=== PATIENT | male | born 2005 | race Hispanic/Latino ===

== ENCOUNTER 2023-06-17 15:34 | Emergency (ER) | payer OTHER, SELFPAY ==
[2023-06-17] MEDS ORDERED: Ondansetron ODT 4 MG TAB ONE (16:25)
[2023-06-17 17:07] LABS: #Eosinphils 0.1 thou/uL (0.0-0.7); #Monocytes 0.7 thou/uL (0.11-0.59); #Neutrophils 6.5 thou/uL (1.40-6.50); %Basophils 0.4 % (0.0-1.0); %Eosinophils 0.6 % (0.0-10.0); %Lymphocytes 11.9 % (28.0-48.0); %Monocytes 8.2 % (0.0-4.0); %Neutrophils 78.8 % (31.0-61.0); Hematocrit 44.6 % (42.0-52.0); Hemoglobin 15.2 g/dL (14.0-18.0); Mean Corpuscular HGB CONC 34.1 g/dL (32.0-36.0); Mean Platelet Volume 10.8 fL (7.4-10.4); Platelet Count 260 10x3/uL (130-400); RBC Distribution Width 12.8 % (11.5-14.5); Red Blood Cell (RBC) Count 5.25 mill/uL (4.00-5.20); White Blood Cell (WBC) Count 8.3 10x3/uL (4.8-10.8)
[2023-06-17 17:32] LABS: ALT (SGPT) 24 U/L (8-55); AST (SGOT) 39 U/L (10-45); Albumin 4.6 g/dL (3.5-5.0); Alkaline Phosphatase 77 U/L (50-130); Anion Gap 15 mmol/L (10-20); BUN (Urea Nitrogen) 9 mg/dL (8.4-21.0); Bilirubin, Total 0.8 mg/dL (0.2-1.2); Calc. Creatinine Clearance 0 mL/min (70-130); Calcium 9.8 mg/dL (7.8-10.44); Carbon Dioxide 26 mmol/L (22-29); Chloride 103 mmol/L (98-107); Estimated GFR 117; Globulin 3.4 g/dL (2.4-3.5); Glucose 92 mg/dL (70-105); Lipase 12 U/L (8-78); Magnesium 1.9 mg/dL (1.7-2.2); Potassium 4.4 mmol/L (3.5-5.1); Sodium 140 mmol/L (136-145)
[2023-06-17 17:34] LABS: Troponin I Less than 0.010 ng/mL (< 0.028)
== END 2023-06-17 17:38 | disposition home or self-care (01) ==
LOC: ERS 15:34
DX: R06.00 Dyspnea, unspecified (principal); F17.290 Nicotine dependence, other tobacco product, uncomplicated
CPT/HCPCS: 36415; 71045; 80053; 83690; 83735; 84484; 85025; 93005; Q0162